=== PATIENT | male | born 1955 | race Caucasian/White ===

== ENCOUNTER 2018-02-16 13:52 | Day surgery (SDC) | payer OTHER ==
[2018-02-16] MEDS ORDERED: LIDOCAINE 1% 2 ML INJ ID PRN (14:02)
[2018-02-16] MEDS ORDERED: LR 1,000 ML IV ONE (14:02)
[2018-02-16] MEDS ORDERED: fentaNYL 100 MCG/2 ML INJ IVP PRN (14:58)
[2018-02-16] MEDS ORDERED: ALBUTEROL 3 ML DEYVIAL IH PRN (14:58)
[2018-02-16] MEDS ORDERED: NALOXONE HCL 0.4 MG/ML INJ IVP PRN (14:58)
[2018-02-16] MEDS ORDERED: DEXAMETHASONE 4 MG/ML VIAL IVP PRN (14:58)
[2018-02-16] MEDS ORDERED: HYDROmorphONE/DILAUDID 2 MG/ML INJ IVP PRN (14:58)
[2018-02-16] MEDS ORDERED: oxyCODONE IR 5 MG TAB PO PRN (14:58)
[2018-02-16] MEDS ORDERED: ONDANSETRON 4 MG/2 ML VIAL IVP PRN (14:58)
[2018-02-16] MEDS ORDERED: MIDAZOLAM 2 MG/2 ML VIAL IVP ONE (15:00)
--- NOTE | 2018-02-16 15:00 | PDANEPAE ---
ANE History of Present Illness R Bunion ANE Past Medical History - Cardiovascular History Hx Hypertension: No Hx Arrhythmias: No Hx Chest Pain: No Hx Coronary Artery / Peripheral Vascular Disease: No Hx CHF / Valvular Disease: No Hx Palpitations: No - Pulmonary History Hx COPD: No Hx Asthma/Reactive Airway Disease: No Hx Recent Upper Respiratory Infection: No Hx Oxygen in Use at Home: No Hx Sleep Apnea: No Sleep Apnea Screening Result - Last Documented: Positive Pulmonary History Comment: CHEN TRIGGERS NO DX - Neurologic History Hx Cerebrovascular Accident: No Hx Seizures: No Hx Dementia: No Neurologic History Comment: MIGRAINES - Endocrine History Hx Diabetes: No - Renal History Hx Renal Disorders: No - Liver History Hx Hepatic Disorders: No Hepatic History Comment: HX OF HEP C THAT IS GONE NOW - Neurological & Psychiatric Hx Hx Neurological and Psychiatric Disorders: No - Cancer History Hx Cancer: No - Congenital Disorder History Hx Congenital Disorders: No - GI History Hx Gastrointestinal Disorders: Yes Gastrointestinal History Comment: REFLUX OCCASSIONALLY - Other Health History Other Health History: GOUT. DVT LT THIGH 2017 - Chronic Pain History Chronic Pain: Yes (RT FOOT) - Surgical History Prior Surgeries: COLECTOMY RUPT DIVERTICULUM 2017. LT KNEE SCOPE 01/2017. TMJ. BILATERAL ELBOWS. PATRICIA. ROTATOR CUFF- LEFT. ANKLE SURGERY- RIGHT ANE Review of Systems Review of Systems: - Exercise capacity METS (RN): 4 METS ANE Patient History - Allergies Allergies/Adverse Reactions: prochlorperazine edisylate [From Compazine] Allergy (Verified 02/11/18 10:26) FEELS LIKE HE'S FLYING prochlorperazine maleate [From Compazine] Allergy (Verified 07/11/14 17:54) - Home Medications Home Medications: Colchicine (RX) DAILY06 07/11/14 [Last Taken 02/15/18 06:00] - NPO status NPO Since - Liquids (Date): 02/16/18 NPO Since - Liquids (Time): 11:00 NPO Since - Solids (Date): 02/15/18 NPO Since - Solids (Time): 20:00 - Smoking Hx Smoking Status: Never smoked - Family Anes Hx Family Hx Anesthesia Complications: NONE ANE Labs/Vital Signs - Vital Signs Blood Pressure: 137/93 Heart Rate: 92 Respiratory Rate: 16 O2 Sat (%): 92 Height: 172.72 cm Weight: 90.718 kg ANE Physical Exam - Airway Neck exam: FROM Mallampati Score: Class 2 Mouth exam: normal dental/mouth exam - Pulmonary Pulmonary: clear to auscultation - Cardiovascular Cardiovascular: regular rate and rhythym - ASA Status ASA Status: II ANE Anesthesia Plan Anesthesia Plan: GA w LMA
[2018-02-16] MEDS ORDERED: ceFAZolin 2 GM/SWFI 2 GM/20 ML SYR IVP ONE (15:10)
--- NOTE | 2018-02-16 15:10 | PDHPUP ---
History & Physical Update H&P update statement: This history and physical update is based on an assessment of the patient which was completed after admission or registration (within 24 hours), but prior to the surgery/procedure. H&P update: H&P reviewed & patient examined, no change in patient's condition since H&P completed
[2018-02-16] MEDS ORDERED: BUPIVACAINE 0.5% 30 ML SDV ONE (15:20)
[2018-02-16] MEDS ORDERED: PROPOFOL 200 MG/20 ML VIAL ONE (15:32)
[2018-02-16] MEDS ORDERED: fentaNYL 100 MCG/2 ML INJ ONE (15:32)
[2018-02-16] MEDS ORDERED: LIDOCAINE 2% 100 MG/5 ML SYR ONE (15:32)
[2018-02-16] MEDS ORDERED: ONDANSETRON 4 MG/2 ML VIAL ONE (15:43)
[2018-02-16] MEDS ORDERED: DEXAMETHASONE 4 MG/ML VIAL ONE (15:43)
--- NOTE | 2018-02-16 16:37 | POSTOPPROG ---
Post Op Note Date of Operation: 02/16/18 Surgeon: Bryn De Leon Pharmacometrician: Pierre Anesthesiologist: Toshia Anesthesia: GET(General Endotracheal) Pre-op Diagnosis: R hallux rigidus Post-op Diagnosis: same Indication: above Procedure: R byron hobson Findings: djd Inf/Abcess present in the surg proc area at time of surgery?: No EBL: Minimal
--- NOTE | 2018-02-16 16:48 | POSTANESTH ---
Post Anesthetic Evaluation Cardiovascular Status: Normal, Stable, Similar to Pre-Op Cond Respiratory Status: Normal, Stable, Similar to Pre-op Cond. Level of Consciousness/Mental Status: Can Participate in Eval, Alert and Oriented Pain Control: Adequate, Prn Tx Ordered Nausea/Vomiting Control: Adequate, Prn Tx Ordered Complications Possibly Related to Anesthesia: None Noted
[2018-02-16 17:38] VITALS: BP 146/86
--- NOTE | 2018-02-17 09:49 | GOP ---
[f rep st] OPERATIVE REPORT DATE OF OPERATION: 02/16/2018 SURGEON: Bryn De Leon MD BRIQUETTER OPERATOR: Jorge Alberto Jay SA ANESTHESIA: General. PREOPERATIVE DIAGNOSIS: Right hallux rigidus and right hallux valgus interphalangeus. POSTOPERATIVE DIAGNOSIS: Right hallux rigidus and right hallux valgus interphalangeus. PROCEDURE PERFORMED: 1. Right Cartiva implant arthroplasty, 1st metatarsophalangeal. 2. Right Julius osteotomy. FINDINGS: SPECIMENS: ESTIMATED BLOOD LOSS: 5 mL. INDICATIONS: A 63-year-old male with significant hallux rigidus and hallux valgus interphalangeus. I discussed operative intervention with him as he had failed conservative treatment and was having significant pain. We discussed both the above procedure and a fusion. He elected for the above, understanding he may need a fusion in the future. We discussed risks of a need for further surgery, wound complications, nonunion, malunion, continued pain, infection, and he elected to proceed. Informed consent was obtained. All questions were answered. He was marked preoperatively. DESCRIPTION OF PROCEDURE: He was taken to the operative suite. Anesthesia was induced. He was given 2 g Ancef. Sterilely prepped and draped in normal fashion. Time-out was performed verifying the site, side, and location; agreement with the team. An Esmarch was utilized as tourniquet; it was inflated. I made a dorsal medial incision. Exposed the joint, which was significantly arthritic. He did have some intact cartilage on the more medial half. I performed a cheilectomy with a sagittal saw and medial eminence resection. I mobilized the underneath surface of the joint to obtain more mobility and then I exposed the joint. This was quite arthritic. I then placed the guide pin, checked fluoroscopically for the Cartiva, reamed, stopping short of the stop to leave this a little bit proud. Selected a 10 mm Cartiva and placed this into place and I checked an x-ray showing good distraction of the joint. I then turned my attention to the Julius, exposed the side of the phalanx, marked as the guide pin. Made osteotomy leaving the far cortex intact and then made a counter wedge that I removed, reduced the toe, pinned it, and then placed a stable which held this in compression. I then checked this and it was stable. I overall liked the alignment of his toe and the movement of it, achieved more dorsiflexion. He was irrigated, closed with 0 Vicryl, 2-0 Vicryl, 3-0 Quill, and Dermabond. He was taken to PACU in stable condition. IMPLANTS: 10 mm Cartiva and an Arthrex 9 mm staple. COMPLICATIONS: None. DRAINS: None. CONDITION: Stable. /[id number]/MODL MTDD
== END 2018-02-16 18:11 | disposition home or self-care (01) ==
LOC: FSGY 13:52
PROVIDERS: ATTEND Orthopaedic Surgery
PROC: 0QQQ0ZZ Repair Right Toe Phalanx, Open Approach (ICD-10-PCS; principal; 2018-02-16 15:30)
PROC: 0SRM0JZ Replacement of Right Metatarsal-Phalangeal Joint with Synthetic Substitute, Open Approach (ICD-10-PCS; principal; 2018-02-16 15:30)
DX: M20.21 Hallux rigidus, right foot (principal); M20.11 Hallux valgus (acquired), right foot; Z86.718 Personal history of other venous thrombosis and embolism
CPT/HCPCS: C1713; J0690; J1100; J2001; J2250; J2405; J2704; J3010

== ENCOUNTER 2018-11-29 15:40 | Observation (INO) | payer OTHER ==
[2018-11-29] MEDS ORDERED: NS 1,000 ML IV ONE ×2 (16:00→16:14)
[2018-11-29] MEDS ORDERED: fentaNYL 100 MCG/2 ML INJ IVP ONE (16:00)
[2018-11-29] MEDS ORDERED: ONDANSETRON 4 MG/2 ML VIAL IVP ONE (16:00)
--- NOTE | 2018-11-29 16:00 | EDPHY ---
H & P Time Seen by Provider: 11/29/18 15:48 HPI/ROS: CHIEF COMPLAINT: Epigastric abdominal pain HISTORY OF PRESENT ILLNESS: Patient has had a previous colectomy after diverticulitis, had pericarditis 4 weeks ago, remote history of DVT at 19 yo, and a cholecystectomy. He presents with 4 days of epigastric pain which is severe today. He was sent from his primary care physician's office to see us. Not better or worse with oral intake. Radiates to both sides of his abdomen. Not associated with vomiting or diarrhea or fever or chills or any injury or trauma. REVIEW OF SYSTEMS: Eye: no change in vision ENT: no sore throat Cardiac: no chest pain or syncope Pulmonary: no cough or SOB Abdomen: HPI Musculoskeletal: no back pain Skin: no rash Neuro: no headache Constitutional: no fever : no urinary symptoms A comprehensive 10 point review of systems is otherwise negative aside from elements mentioned in the history of present illness. PAST MEDICAL HISTORY: As in HPI also migraine headaches family history: Brother also has venous thromboembolism. Social history: Primary care Dr. Doris Monreal General Appearance: Alert and conversant, cooperative. Eyes: No scleral icterus. ENT, Mouth: Dry mucous membranes. Respiratory: Normal respiratory effort, breath sounds equal, lungs are clear to auscultation. Cardiovascular: Regular rate and rhythm. Normal femoral pulses. Gastrointestinal: Epigastric tenderness but no pulsatile mass. Normal male . Neurological: Alert, face symmetric, normal motor and sensory in extremities. Skin: Warm and dry, no rashes. Musculoskeletal: No peripheral edema. Psychiatric: Not agitated. Emergency Department course/MDM: Noted to be tachycardic at heart rate of 111. EKG, fentanyl 100 mcg IV and Zofran 4 mg IV, normal saline 1 L for clinical dehydration. I-STAT and CT scanning abdomen and pelvis discussed and consented. His surgeon for his colectomy was at [facility] in [place], not a carmen surgeon. Procedure: Limited abdominal ultrasound. A limited abdominal ultrasound was performed of the retroperitoneum. The indication for the study was to rule out abdominal aortic aneurysm. On the study no evidence of AAA was identified. Results: No evidence of aortic aneurysm. The examination was performed and interpreted by myself. 1614: I-STAT creatinine 1.3, 2 L IV normal saline total, CT abdomen pelvis ordered. 1656: intrahepatic left portal veins occluded, Helgans. Results discussed with the patient and Dr. Ciro Nuno at this time; Dr. Hollingsworth will consult, discussed at 1719. Lovenox 1 milligram/kilogram subcutaneous for anticoagulation. Smoking Status: Never smoked Constitutional: Initial Vital Signs Temperature (C) 36.8 C 11/29/18 15:45 Heart Rate 111 H 11/29/18 15:45 Respiratory Rate 20 11/29/18 15:45 Blood Pressure 149/93 H 11/29/18 15:45 O2 Sat (%) 91 L 11/29/18 15:45 O2 Delivery Mode Nasal Cannula O2 (L/minute) 2 Allergies/Adverse Reactions: prochlorperazine edisylate [From Compazine] Allergy (Verified 11/29/18 15:44) FEELS LIKE HE'S FLYING shellfish derived Allergy (Verified 11/29/18 17:37) Home Medications: Medication Instructions Recorded Acetaminophen/ASA/Caffeine 2 each PO DAILY PRN 11/29/18 [Excedrin Tablet (*)] Hydrocodone/APAP 5/325 [[place] 1 tab PO DAILY PRN 11/29/18 5/325 (*)] Medical Decision Making - Diagnostics EKG Interpretation: 12-lead EKG interpreted by me; official reading is in computer system. My interpretation is sinus tachycardia rate 101 no ischemic changes. Imaging Results: Imaging Impressions Abdomen CT 11/29/18 16:14 Impression: 1. Thrombosis of the intrahepatic left portal venous system is likely idiopathic. No intra-abdominal mass or localized inflammatory process. Main portal vein and right portal venous system remains patent. 2. Benign right pericardial cyst. Findings discussed with Emergency Department physician, Dustin Trimble on 11/29/2018 , 17:05. Imaging: Discussed imaging studies w/ pyrometallurgical engineer Radiologist Differential Diagnosis: Differential considered including but not limited to common duct stone, pancreatitis, perforation, the vascular problem, bowel obstruction Critical Care Time: Critical care time spent by me, Dr. Trimble, exclusively with the care of this patient was 30 minutes, exclusive of PA or CONVERTER SUPERVISOR time and exclusive of separate procedures. The organ system at risk was hematologic and hepatic and I ordered multiple diagnostics, IV fluids, pain medication, anticoagulation and specialist consultation to stabilize the patient and prevent worsening of the patient's condition. - Data Points Laboratory Results: Laboratory Results 11/29/18 16:08 11/29/18 16:08 11/29/18 11/29/18 11/29/18 16:13 16:08 16:08 WBC 9.04 10^3/uL 10^3/uL (3.80-9.50) RBC 5.38 10^6/uL 10^6/uL (4.40-6.38) Hgb 16.4 g/dL g/dL (13.7-17.5) POC Hgb 16.7 gm/dL gm/dL (13.7-17.5) Hct 47.2 % % (40.0-51.0) POC Hct 49 % % (40-51) MCV 87.7 fL fL (81.5-99.8) MCH 30.5 pg pg (27.9-34.1) MCHC 34.7 g/dL g/dL (32.4-36.7) RDW 13.2 % % (11.5-15.2) Plt Count 135 10^3/uL L 10^3/uL (150-400) MPV 11.4 fL fL (8.7-11.7) Neut % (Auto) 62.7 % % (39.3-74.2) Lymph % (Auto) 21.8 % % (15.0-45.0) [place] % (Auto) 11.9 % % (4.5-13.0) Eos % (Auto) 2.3 % % (0.6-7.6) Baso % (Auto) 0.9 % % (0.3-1.7) Nucleat RBC Rel Count 0.0 % % (0.0-0.2) Absolute Neuts (auto) 5.66 10^3/uL 10^3/uL (1.70-6.50) Absolute Lymphs (auto) 1.97 10^3/uL 10^3/uL (1.00-3.00) Absolute Monos (auto) 1.08 10^3/uL H 10^3/uL (0.30-0.80) Absolute Eos (auto) 0.21 10^3/uL 10^3/uL (0.03-0.40) Absolute Basos (auto) 0.08 10^3/uL 10^3/uL (0.02-0.10) Absolute Nucleated RBC 0.00 10^3/uL 10^3/uL (0-0.01) Immature Gran % 0.4 % % (0.0-1.1) Immature Gran # 0.04 10^3/uL 10^3/uL (0.00-0.10) POC Sodium 141 mEq/L mEq/L (135-145) Sodium 138 mEq/L mEq/L (135-145) POC Potassium 4.0 mEq/L mEq/L (3.3-5.0) Potassium 4.3 mEq/L mEq/L (3.5-5.2) POC Chloride 102 mEq/L mEq/L (97-110) Chloride 104 mEq/L mEq/L (97-110) Carbon Dioxide 24 mEq/l mEq/l (22-31) Anion Gap 10 mEq/L mEq/L (6-14) POC BUN 20 mg/dL mg/dL (7-23) BUN 20 mg/dL mg/dL (7-23) Creatinine 1.3 mg/dL mg/dL (0.7-1.3) POC Creatinine 1.3 mg/dL mg/dL (0.7-1.3) Estimated GFR 56 Glucose 89 mg/dL mg/dL (70-100) POC Glucose 89 mg/dL mg/dL (70-100) Calcium 10.2 mg/dL mg/dL (8.5-10.4) Total Bilirubin 1.2 mg/dL mg/dL (0.1-1.4) Conjugated Bilirubin 0.4 mg/dL mg/dL (0.0-0.5) Unconjugated Bilirubin 0.8 mg/dL mg/dL (0.0-1.1) AST 26 IU/L IU/L (17-59) ALT 37 IU/L IU/L (21-72) Alkaline Phosphatase 95 IU/L IU/L (38-126) Total Protein 7.8 g/dL g/dL (6.3-8.2) Albumin 4.9 g/dL g/dL (3.5-5.0) Lipase 70 IU/L IU/L (23-300) Medications Given: Discontinued Medications Enoxaparin Sodium (Lovenox) 90 mg SC EDNOW ONE Stop: 11/29/18 17:12 Last Admin: 11/29/18 17:52 Dose: 90 mg Fentanyl (Sublimaze) 100 mcg IVP EDNOW ONE Stop: 11/29/18 16:01 Last Admin: 11/29/18 16:16 Dose: 100 mcg Sodium Chloride (Ns) 1,000 mls @ 0 mls/hr IV EDNOW ONE; Wide Open PRN Reason: Protocol Stop: 11/29/18 16:01 Last Admin: 11/29/18 16:16 Dose: 1,000 mls Sodium Chloride (Ns) 1,000 mls @ 0 mls/hr IV EDNOW ONE; Wide Open PRN Reason: Protocol Stop: 11/29/18 16:15 Last Admin: 11/29/18 17:02 Dose: 1,000 mls Ondansetron HCl (Zofran) 4 mg IVP EDNOW ONE Stop: 11/29/18 16:01 Last Admin: 11/29/18 16:16 Dose: 4 mg Point of Care Test Results: Chemistry 11/29/18 16:13 POC Sodium 141 mEq/L mEq/L (135-145) POC Potassium 4.0 mEq/L mEq/L (3.3-5.0) POC Chloride 102 mEq/L mEq/L (97-110) POC BUN 20 mg/dL mg/dL (7-23) POC Creatinine 1.3 mg/dL mg/dL (0.7-1.3) POC Glucose 89 mg/dL mg/dL (70-100) ISTAT H&H 11/29/18 16:13 POC Hgb 16.7 gm/dL gm/dL (13.7-17.5) POC Hct 49 % % (40-51) Departure - Departure Disposition: [facility]patient Acute Clinical Impression: intrahepatic portal vein clot Condition: Fair
--- NOTE | 2018-11-29 16:14 | CPEKG ---
Test Reason : OPEN Blood Pressure : / mmHG Vent. Rate : 101 BPM Atrial Rate : 101 BPM P-R Int : 159 ms QRS Dur : 090 ms QT Int : 336 ms P-R-T Axes : 033 036 031 degrees QTc Int : 436 ms Sinus tachycardia Confirmed by Butch Boss ([id number]) on 11/29/2018 4:13:51 PM Referred By: BUTCH BOSS Confirmed By:Butch Boss
[2018-11-29] MEDS ORDERED: IOPAMIDOL (ISOVUE 370) 75 ML BTL IV ONE (16:30)
[2018-11-29 16:33] LABS: PLATELET COUNT 135 10^3/uL (150-400)
[2018-11-29] MEDS ORDERED: ENOXAPARIN 100 MG/ML SYR SC ONE (17:11)
[2018-11-29 17:54] LABS: INR 1.04 (0.83-1.16); PROTIME(PATIENT) 13.8 SEC (12.0-15.0)
[2018-11-29] MEDS ORDERED: HYDROmorphONE/DILAUDID 2 MG/ML INJ IVP PRN (18:01)
[2018-11-29] MEDS ORDERED: ACETAMINOPHEN 325 MG TAB PO PRN (18:01)
[2018-11-29] MEDS ORDERED: ONDANSETRON 4 MG/2 ML VIAL IVP PRN (18:01)
--- NOTE | 2018-11-29 18:40 | GHP ---
DATE OF ADMISSION: 11/29/2018 CHIEF COMPLAINT: Abdominal pain. HISTORY OF PRESENT ILLNESS: This is a 63-year-old male with history of DVT, 1st at age 18 that was a ssociated with treatment of pneumonia with prolonged immobilization, and a 2nd DVT, also in his right leg 3 years ago after knee surgery. Presents with acute onset of abdominal pain. The pain is descr ibed as an 8/10 ache that began spontaneously and has been constant. In the emergency department, he got some fentanyl which brought the pain down to a 6. He denies any trauma. He denies any nausea o r vomiting. His bowel habits have been normal. He describes no melena or bright red blood per rectu m. He has had no recent weight loss or weight gain. PAST MEDICAL HISTORY: 1. Pericarditis, diagnosed a month ago. 2. Multiple DVTs. 3. Gout. 4. Migraine headaches. PAST SURGICAL HISTORY: 1. Colon resection due to diverticulitis. 2. Multiple orthopedic surgeries including bilateral knee arthroscopies and right shoulder. HOME MEDICATIONS: Reviewed, refer to [facility] for details. ALLERGIES: Compazine and shell fish. SOCIAL HISTORY: The patient denies any alcohol, tobacco or illicit drug use. FAMILY HISTORY: Significant for blood clots in his brother who required a leg amputation after a blo od clot was missed. REVIEW OF SYSTEMS: Comprehensive 10-point review of systems was done and is negative, except for as mentioned in HPI. PHYSICAL EXAM: VITAL SIGNS: Blood pressure 137/86, pulse 99, respiratory rate 18, O2 saturation 97% on 2 L. Temperature afebrile. GENERAL: The patient appears to be uncomfortable but no acute distr ess. HEAD: Normocephalic, atraumatic. EYES: PERRLA. Sclerae anicteric. MOUTH: Moist mucous mem branes. NECK: Supple. No lymphadenopathy. CARDIOVASCULAR: S1, S2 no murmurs, rubs, clicks, moreno ps. No JVD. No lower extremity edema. There is some chronic swelling in his left lower leg. PULMON ALEX: Lungs are clear. No wheezes, rales, or rhonchi. ABDOMEN: Soft. There is some tenderness to palpation in the epigastrium and right upper quadrant without guarding or rebound tenderness. Normoa ctive bowel sounds. EXTREMITIES: No clubbing or cyanosis. NEURO: Cranial nerves 2-[address] No focal motor or sensory deficits. SKIN: Clear. No rashes. DIAGNOSTICS: WBC is 9.04, hemoglobin 16.4, hematocrit 47.2, platelets 135. Coag panel is pending. H ypercoagulable panel is pending. Sodium 138, potassium 4.3, chloride 104, CO2 24, BUN 20, creatinine 1.3, glucose 89. LFTs unremarkable. CT abdomen and pelvis was reviewed and revealed thrombosis of the intrahepatic left portal venous sys tem, and was thought to be idiopathic by radiologist's report. There was no intraabdominal mass or l ocalized inflammatory process. There was a benign right pericardial cyst. EKG, which I visualized and personally interpreted, sinus rhythm, rate 101 beats per minute, no acute ischemic changes. ST segments are normal. There is no electrical alternans. ASSESSMENT AND PLAN: This is a 63-year-old male with history of multiple deep vein thromboses in the past. Presenting with abdominal pain, found to have: Portal vein thrombosis, it appears to be idiopathic. PLAN: I discussed the case with Dr. Dianna Hollingsworth from Gastroenterology who will see the patient in consultation. We will start him on anticoagulation with Lovenox for now. The patient will requir e hospitalization due to pain. We will order oral oxycodone and IV Dilaudid as needed for breakthrou gh pain. The patient requests to be full code status. /[id number]/MODL
[2018-11-29] MEDS: oxyCODONE IR 5 MG TAB PO PRN (20:27)
[2018-11-30] MEDS: oxyCODONE IR 5 MG TAB PO PRN (01:29)
[2018-11-30 05:36] LABS: PLATELET COUNT 109 10^3/uL (150-400)
[2018-11-30] MEDS ORDERED: ENOXAPARIN 100 MG/ML SYR SC SCH (06:00)
[2018-11-30 11:45] VITALS: BP 106/70
--- NOTE | 2018-11-30 12:56 | GCON ---
DATE OF CONSULTATION: 11/30/2018 REFERRING PHYSICIAN: Ciro Nuno DO CHIEF COMPLAINT: Epigastric abdominal pain. HISTORY OF PRESENT ILLNESS: I am asked to see this patient in consultation by Dr. Nuno for chief co mplaint of epigastric abdominal pain. Patient is a pleasant 63-year-old previously healthy, noted bah dden onset of an aching pain in the epigastric area about 4 days ago. He presented to the emergency room and found to have a portal vein clot. He does have a history of multiple clots in the past, mos t recently a few years ago. Also has family history for clotting in his brother. Patient does have a remote history of hepatitis C, states that he did receive interferon, but could not tolerate and th en was told that his hepatitis spontaneously cleared and has not been followed, but otherwise, no oth er liver disease. No family history for liver disease. He has had a colonoscopy in August 2018, wi th removal of an inflammatory polyp. With this, he has had no fevers or chills. No diarrhea or cons tipation. No blood in his stools or melena. No significant weight loss. No recent trauma. ALLERGIES: To Compazine and shellfish. MEDICATIONS: At home were [place] and Excedrin. PAST MEDICAL HISTORY: Pericarditis diagnosed a month ago, multiple DVTs, gout, migraines, diverticul osis on colonoscopy. SOCIAL HISTORY: Denies alcohol. FAMILY HISTORY: Notable for blood clots. REVIEW OF SYSTEMS: I performed a complete review of systems, which is negative, except for the perti nent positives, negatives noted above in HPI. PHYSICAL EXAM: VITAL SIGNS: Afebrile at 36.9, BP 106/70, pulse 79. GENERAL: He is alert and orien rene in no apparent distress. HEENT: Eyes: No scleral icterus. ENT: No oral lesions. CARDIOVASCU LAR: Regular rate and rhythm. CHEST: Clear to auscultation. ABDOMEN: Slightly tender to palpatio n in the epigastric area, but no hepatosplenomegaly. No ascites. NEUROLOGIC: Nonfocal. SKIN: No rashes. LABORATORY/IMAGING: Hematocrit is normal at 45, platelets 109, white count 7.9. Alkaline phosphatas e 95, AST 26, ALT 37, total albumin 0.2. CT scan of the abdomen shows thrombus in the intrahepatic left portal venous system. No masses. No inflammatory process. Main portal vein and right system are patent. ASSESSMENT: Patient with portal vein thrombosis of the left system, presumably acute. Patient did n otice abdominal pain with this. It is appropriate to anticoagulate. Most likely, I think his risk f actor would be hypercoagulable disorder given his history and workup is in progress. Differential di agnosis for portal vein thrombosis would also include liver disease; however, his liver appears struc turally normal on CT scan. His LFTs are normal. I do not see any signs of cirrhosis; however, he do es have this remote history of hepatitis C, and I would recommend that we check a viral load. Differ ential would also include intraabdominal infection or trauma, although there is no history for this. Also, consider tumor, again no masses seen on CT scan. PLAN: 1. Recommend check hepatitis C viral load. Hepatitis C can also be associated with hypercoagulable state. 2. Hypercoagulable workup is in progress. 3. We will check hepatitis A and B serology, along with tumor markers for alpha-fetoprotein and CEA as a precaution. 4. Agree with anticoagulation. Thank you for this consult. /[id number]/MODL
--- NOTE | 2018-11-30 13:04 | HOSPPROG ---
Hospitalist Progress Note Assessment/Plan: 63 yo M w h/o VTE here w portal vein thrombosis home today see dc summary Subjective: case d/w dr dillon Objective: Vital Signs Temp Pulse Resp BP Pulse Ox 36.4 C 79 16 106/70 90 L 11/30/18 11:44 11/30/18 11:44 11/30/18 11:44 11/30/18 11:44 11/30/18 11:44 Laboratory Results 11/30/18 04:40 11/29/18 11/30/18 12/01/18 05:59 05:59 05:59 Intake Total 800 Balance 800 PT 13.8 SEC (12.0-15.0) 11/29/18 17:30 INR 1.04 (0.83-1.16) 11/29/18 17:30 - Physical Exam Constitutional: no apparent distress, appears nourished Eyes: PERRL, anicteric sclera Ears, Nose, Mouth, Throat: moist mucous membranes, hearing normal Cardiovascular: regular rate and rhythym, no murmur, rub, or gallop Respiratory: no respiratory distress, no rales or rhonchi Gastrointestinal: normoactive bowel sounds, soft, non-tender abdomen Genitourinary: No snow in urethra Skin: warm Musculoskeletal: full muscle strength Neurologic: AAOx3
--- NOTE | 2018-11-30 13:13 | ASMTCMCOM ---
CM Note CM Note Notes: Patient plan of care reviewed in am rounds. Patient is 63 year old male admitted with abdominal pain found to have a hepatic portal parish thrombosis in the absence of liver disease. No current needs identified. CM avialable should needs arise. Plan: Likely to dc to home no needs when medically cleared for discharge. Date Signed: 11/30/2018 01:12 PM Electronically Signed By:Sarai Barker RN
--- NOTE | 2018-11-30 13:27 | GDS ---
Please note, the patient improved faster than anticipated. Please see admission history and physical by Dr. Ciro Nuno. The patient presented with abdominal pa in. CT showed portal vein thrombosis without evidence of significant liver disease. He does not hav e evidence of upper GI bleeding. He has had multiple DVTs in the past, currently off anticoagulation . He has a remote history of hepatitis C that sounds like it was partially treated with near resolution . He does not have a known hypercoagulable disorder. It is worth noting that his portal vein thrombosis was in the left system, and the main and right [place] vein systems were patent. The patient did not have ascites. He was initiated on low molecular w eight heparin with improvement in his symptoms. He has taken Xarelto in the past, and that is restar rene, and he is discharged home today. Some labs were sent. I gave him my phone number to follow up with the labs next week. He has seen Dr. Ramirez in the past, and I recommended GI followup in 4- 6 weeks. /[id number]/MODL
--- NOTE | 2018-11-30 13:30 | ASMTLACE ---
PAMELAE Length of stay for Answers: 1 day current admission Acuity / Level of Answers: Yes Care: Did the patient have an inpatient admission? Comorbidities - select Answers: Opioid dependence all that apply / Chronic pain Other Notes: DVT # of Emergency department Answers: 1-2 visits in the last 6 months Score: 10 Date Signed: 11/30/2018 01:30 PM Electronically Signed By:Sarai Barker RN
--- NOTE | 2018-11-30 13:32 | ASMTDCNOTE ---
Case Management Discharge Discharge Order Complete? Answers: Yes Patient to Obtain Answers: Independently Medications Transportation Arranged Answers: Family/Friends Family Notified Answers: Yes Discharge Comments Notes: Medically cleared for discharge to home. No needs. Date Signed: 11/30/2018 01:31 PM Electronically Signed By:Sarai Barker RN
[2018-11-30 14:35] LABS: HEPATITIS A ANTIBODY IGM (BCH) NEGATIVE (NEGATIVE); HEPATITIS B CORE AB IGM NEGATIVE (NEGATIVE); HEPATITIS B SURFACE ANTIGEN NEGATIVE (NEGATIVE)
[2018-12-01 13:58] LABS: HCV QT RNA PCR < 1 IU/mL (<10)
== END 2018-11-30 13:59 | disposition home or self-care (01) ==
LOC: INTOOBSV 17:07 → F1N 18:17
PROVIDERS: ADMIT Family Medicine; ATTEND Family Medicine
DX: I81 Portal vein thrombosis (principal); E86.0 Dehydration; Z86.718 Personal history of other venous thrombosis and embolism; I31.9 Disease of pericardium, unspecified; M10.9 Gout, unspecified; Z90.49 Acquired absence of other specified parts of digestive tract
CPT/HCPCS: 74177; 93005; 96361; 96372; 96374; 96375; 99291; G0378; 82435-PO; 82565-PO; 82947-PO; 84132-PO; 84295-PO; 84520-PO; 85014-ER; 85300-90; 85303-90; 85306-90; 86147-90; 86705-90; 86709-90; J1650; J2405; J3010; Q9967